=== PATIENT | female | born 1990 | race Caucasian/White ===

== ENCOUNTER 2022-11-06 21:58 | Emergency (ER) | payer SELFPAY ==
[~2022-11-06] VITALS: Ht 157.5 cm; Wt 46.3 kg
--- NOTE | 2022-11-06 22:24 | NUR ---
After being triaged, patient was placed back in the waiting due to no beds available in the ER at this time.
--- NOTE | 2022-11-06 23:37 | NUR ---
Patient placed in room 4b at this time.
--- NOTE | 2022-11-06 23:45 | NUR ---
Dr. Moss evaluated patient at bedside. MSE in progress.
[2022-11-07] MEDS ORDERED: OXYCODONE/APAP 5-325 MG TABLET PO ONE
[2022-11-07] MEDS ORDERED: ONDANSETRON ODT 4 MG TAB.RAPDIS ONE
[2022-11-07] MEDS ORDERED: ONDANSETRON ODT 4 MG TAB.RAPDIS SL ONE
[2022-11-07] MEDS ORDERED: OXYCODONE/APAP 5-325 MG TABLET ONE (00:01)
--- NOTE | 2022-11-07 00:25 | NUR ---
Patient taken to CT via dallin accompanied by suze
--- NOTE | 2022-11-07 01:00 | NUR ---
Patient placed in left knee immobilizer per Dr. Moss's order. Patient given crutches and education provided.
--- NOTE | 2022-11-07 02:18 | NUR ---
Patient sleeping comfortably in bed. Family at bedside.
[2022-11-07] MEDS ORDERED: ONDA4TAB5 PO (02:57)
[2022-11-07] MEDS ORDERED: OXYC-128 PO (02:57)
--- NOTE | 2022-11-07 04:03 | NUR ---
Patient discharged to home in stable condition. Written and verbal after care instructions given. Patient verbalizes understanding of instructions. Instructed patient not to drive. Stressed follow up or return to ER for worsening s/s.
[2022-11-07 04:05] VITALS: BP 115/79
== END 2022-11-07 04:06 | disposition home or self-care (01) ==
LOC: ER 22:05
DX: S16.1XXA Strain of muscle, fascia and tendon at neck level, initial encounter (principal); S40.022A Contusion of left upper arm, initial encounter; S80.12XA Contusion of left lower leg, initial encounter; S09.90XA Unspecified injury of head, initial encounter; M25.562 Pain in left knee; Z79.899 Other long term (current) drug therapy; W18.39XA Other fall on same level, initial encounter; Y93.89 Activity, other specified; Y92.89 Other specified places as the place of occurrence of the external cause; Y99.8 Other external cause status
CPT/HCPCS: 70450; 72125; 73060; 73090; 73551; 73590; A4663; Q0162